=== PATIENT | male | born 1945 | race Caucasian/White ===

== ENCOUNTER → 2018-12-09 | Outpatient (CLI) | payer MEDICARE ==
[2016-03-15 15:00] VITALS: BP 145/88
[~2018-12-09] MED LIST: AMLO10TA8 PO; ASPI-482 PO; METF500T16 PO; SIMV20TA3 PO; SITA100T PO; TELM1TAB3 PO
--- NOTE | 2018-12-09 18:27 | RAD ---
MRI of the lumbar spine without contrast 12/09/2018 CLINICAL HISTORY: Low back pain. TECHNIQUE: Unenhanced T1-weighted and T2-weighted sagittal and axial and inversion recovery sagittal images of the lumbar spine were obtained. FINDINGS: For the purposes of this dictation 5 lumbar vertebrae have been assumed. The last reasonly well-defined lumbar-appearing disc space will be referred to as L5. A hypoplastic disc is seen at L5-S1. Very mild S-shaped curvature of the thoracolumbar spine is seen. Degenerative signal changes are seen involving all of the disks of the lumbar spine. Degenerative signal changes are seen within the marrow surrounding these discs. The conus medullaris is normal morphology, position, and signal characteristics. At the L1-2 disc space there is a mild to moderate generalized disc bulge. This is eccentric to the right. Degenerative changes are seen involving the facet joints bilaterally. There is mild ligamentum flavum hypertrophy bilaterally. There is prominence of the posterior epidural fat. These findings when combined result in mild central spinal canal stenosis. Mild right neural foraminal stenosis is seen. At the L2-3 disc space there is a mild generalized disc bulge. This is eccentric to the left. Degenerative changes are seen involving the facet joints bilaterally. There is mild ligamentum flavum hypertrophy bilaterally. These findings do not result in significant central spinal canal stenosis. Mild left neural foraminal stenosis is seen. The right neural foramen is patent. At the L3-4 disc space there is a mild to moderate generalized disc bulge. Degenerative changes are seen involving the facet joints bilaterally. There is moderate ligamentum flavum hypertrophy bilaterally. These findings when combined result in moderate central spinal canal stenosis. Mild to moderate bilateral neural foraminal stenosis is seen. At the L4-5 disc space there is a mild to moderate generalized disc bulge. Degenerative changes are seen involving the facet joints bilaterally. There is mild ligamentum flavum hypertrophy bilaterally. These findings do not result in significant central spinal canal stenosis. Moderate bilateral neural foraminal stenosis is seen. At the L5-S1 disc space there is a minimal generalized disc bulge. Degenerative changes are seen involving the facet joints bilaterally. These findings do not result in significant central spinal canal or neural foraminal stenosis. IMPRESSION: The changes of degenerative disc disease are seen throughout the lumbar spine. These findings result in mild central spinal canal stenosis at L1-2 and moderate central spinal canal stenosis at L3-4. Mild right neural foraminal stenosis is seen at L1-2. Mild left neural foraminal stenosis is seen at L2-3. Mild to moderate bilateral neural foraminal stenosis is seen at L3-4. Moderate bilateral neural foraminal stenosis is seen at L4-5. Electronically signed by: Rasheed Manuel MD (12/09/2018 6:24 PM) [id number]
== END | disposition home or self-care (01) ==
LOC: MRI 14:11
PROVIDERS: ATTEND Family Medicine
DX: M51.36 Other intervertebral disc degeneration, lumbar region (principal); M48.061 Spinal stenosis, lumbar region without neurogenic claudication; M47.817 Spondylosis without myelopathy or radiculopathy, lumbosacral region; M89.38 Hypertrophy of bone, other site
CPT/HCPCS: 72148

== ENCOUNTER → 2019-12-29 | Outpatient (CLI) | payer MEDICARE ==
[2016-03-15 15:00] VITALS: BP 145/88
[~2019-12-29] MED LIST changes: +SIMV20TA18 PO; -SIMV20TA3 PO
--- NOTE | 2019-12-29 15:07 | [facility] ---
MRI Lumbar Spine without contrast History: Degenerative disc disease, low back pain Technique: Multiplanar, multi sequential noncontrast MR imaging was performed of the lumbar spine. Comparison: December 09, 2018 Findings: There is again transitional anatomy of the lumbar spine. There is assumption of 5 lumbar type vertebral bodies. Based on visualization of ribs at what is considered T12, most inferior formed although somewhat rudimentary intervertebral disc space is considered L5-S1. There is minimal grade 1 anterior spondylolisthesis at what is considered L4-5. Conus terminates at T12-L1. There is again mild degenerative disc disease L2-3 through L4-5 and [id number] degenerative disc disease at L1-L2. There is trace inferior L2 and L1 endplate edema likely reactive/degenerative in etiology. There is posterior annular tear L1-2. T12-L1: Spinal canal is adequate. Neural foramina are not significantly narrowed. L1-L2: There is somewhat more prominent broad posterior bulge indenting the ventral thecal sac. There is mild buckling of the ligamentum flavum. There is somewhat increased mild narrowing of the far lateral recesses bilaterally, right greater than left. There is mild to moderate narrowing of the right neural foramen by bulge in combination with facet degenerative change, very mild posterior narrowing on the left. L2-L3: There is minimal disc osteophyte complex. There is mild facet degenerative change. There is similar mild narrowing of the far lateral recesses bilaterally, central canal adequate. There is mild to moderate narrowing of the left neural foramen mostly from inferiorly by disc osteophyte complex. Right neural foramen adequate. L3-L4: There is disc osteophyte complex, superimposed bulge somewhat greater. There is mild to moderate buckling of the ligament flavum. There is mild prominence of posterior epidural fat centrally. There is overall moderate spinal stenosis with left greater than right lateral recess stenosis. There is moderate narrowing of the left neural foramen by disc osteophyte complex and facet, contact of undersurface of exiting left L3 nerve root in the neural foramen and proximal extraforaminal region by bulge/protrusion somewhat greater on this exam. There is mild narrowing greater distally of the right neural foramen with bulge near the undersurface exiting right L3 nerve root without displacement. L4-L5: There is severe bilateral facet degenerative change and mild buckling of the ligamentum flavum. There is very mild partial uncovering of the posterior aspect of the disc due to spondylolisthesis. There is again mild to moderate narrowing of the far left lateral recess primarily from posteriorly. There is moderate to severe right and moderate left neural foramina compromise as seen previously with contact of the exiting L4 nerve roots bilaterally primarily from inferiorly by disc osteophyte complex. L5-S1: Spinal canal and neural foramina are adequate. Impression: 1. There is transitional anatomy of the lumbar spine as stated, assumption of 5 lumbar type vertebral bodies. There is minimal grade 1 anterior spondylolisthesis at what is considered L4-5, most inferior formed although somewhat rudimentary intervertebral disc space considered L5-S1. 2. There is overall moderate spinal stenosis with left greater than right lateral recess stenosis at L3-4. There is increased mild narrowing of the far lateral recesses bilaterally at L1-L2, again [id number] left lateral recess stenosis at L4-5 and also mild narrowing of the far lateral recesses bilaterally at L2-3. 3. There is multilevel lumbar neural foramina compromise most notable right greater than left at L4-5, on the left at L3-4 and L2-3, and on the right at L1-L2 as described. 4. There is [id number] L1-L2 degenerative disc disease, minimally L2-3 through L4-5. Electronically signed by: Nolberto Myers MD (12/29/2019 3:04 PM) [id number]
== END | disposition home or self-care (01) ==
LOC: KCIC MRI 12:51
PROVIDERS: ATTEND Family Medicine
DX: M47.816 Spondylosis without myelopathy or radiculopathy, lumbar region (principal); M43.16 Spondylolisthesis, lumbar region; M48.061 Spinal stenosis, lumbar region without neurogenic claudication; M51.36 Other intervertebral disc degeneration, lumbar region; M25.78 Osteophyte, vertebrae
CPT/HCPCS: 72148